=== PATIENT | male | born 1940 | race Caucasian/White ===

== ENCOUNTER 2017-08-02 17:20 | Emergency (ER) | payer MEDICARE, OTHER ==
[~2017-08-02] VITALS: Ht 177.8 cm; Wt 90.7 kg
[~2017-08-02 17:20] MED LIST: AUGMENTIN 500 M1 TAB PO
--- OUTSIDE RECORDS SUMMARY | 2017-08-02 17:57 | External Medical Summary Rpt | CCD ---
Author Author YESSICA Address Unknown Phone [email or web address] Purpose Continuity of Care Document - through 2016
--- OUTSIDE RECORDS SUMMARY | 2017-08-02 17:57 | External Medical Summary Rpt | CCD ---
Author Author [employer] Organization [employer] Address Unknown Phone Unavailable Purpose Continuity of Care Document - through 2016
--- OUTSIDE RECORDS SUMMARY | 2017-08-02 17:57 | External Medical Summary Rpt | CCD ---
Author Author YESSCIA Address Unknown Phone [email or web address] Purpose Continuity of Care Document - through 2016
--- OUTSIDE RECORDS SUMMARY | 2017-08-02 17:58 | External Medical Summary Rpt ---
Author Author YESSICA Hightower, [employer] Organization [employer] Address Unknown Phone Unavailable
--- OUTSIDE RECORDS SUMMARY | 2017-08-02 17:58 | External Medical Summary Rpt | CCD ---
Demographics Preferred Language American Marital Status Unknown Anglican Affiliation Unknown Race Unknown Ethnic Group Unknown Author Author , YESSICA Organization YESSICA Address Unknown Phone Immunization Name Date Rout CVX Reac Dose Comm Prov Is Faci e tion ent ider Refu lity Give sed n Td 03-0 9 999 Hist H149 No H149 (uzma 5-19 ori lt), 97 al Info adso rmat rbed ion - Sour ce Unsp ecif ied
--- OUTSIDE RECORDS SUMMARY | 2017-08-02 17:58 | External Medical Summary Rpt | CCD ---
Demographics Preferred Language Yemeni Marital Status Unknown Sikhism Affiliation Unknown Race Unknown Ethnic Group Unknown Author Author , YESSICA Organization YESSICA Address Unknown Phone [email or web address] Immunization Name Date Rout CVX Reac Dose Comm Prov Is Faci e tion ent ider Refu lity Give sed n Td 03-0 9 999 Hist H149 No H149 (uzma 5-19 ori lt), 97 al Info adso rmat rbed ion - Sour ce Unsp ecif ied
[2017-08-02 18:19] LABS: HEMOGLOBIN 13.2 g/dL (14.1-18.0); LYMPH # 1.3 K/mm3 (0.7-4.5); LYMPH % 8.5 % (10-50)
[2017-08-02 18:40] LABS: BUN 30 mg/dL (7-18); GFR (ESTIMATED) 33 ML/MIN (>60)
--- NOTE | 2017-08-02 18:52 | Emergency Room Report ---
History of Present Illness Time Seen by MD Lester Presenting Problem in Triage Pt arrived:Wheelchair Presenting Problem:GENERAL WEAKNESS SINCE NOON , NAUSEA BUT NO VOMITING , SHARP PAIN IN ABD THAT COMES AND GOES . 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 N Clinical Suspician of Infection? N Mental Status: 1 - Regular (Normal Baseline) Sepsis Risk:Low Sepsis Risk Have you (or family members/close friends) recently traveled outside the [place]? N If Yes, where/when: Have you had exposure to infectious disease within the past month? TB? Other? Specify: Abdominal pain radiating to back, n/v, not feeling well for the past day or so, c/o bloating. Reports hx of pancreatitits leading to choly at [place] in past. Keeping down kimmie rafat. ALLERGIES Coded Allergies: aspirin (Intermediate, 08/02/17) Home Medications Active Scripts Amoxicillin & Pot Clavulanate (Augmentin Tablet) 1 TAB PO TID 7 Days Prov: 02/10/08 History Medical History General Angina: Yes [place]: Yes Hypertension? Yes Hyperlipidemia? Yes CHF? No COPD? No Asthma? No Hernia? No CVA? No Seizures? No Diabetes? No UTI? No Stones? No GB Disease: No Hepatitis? No Cataracts? No Glaucoma? No MRSA? No TB? No Cancer? No Immunization Hx DT/Tetanus 1-4 YRS Flu THIS YR Pneumonia 1-4 YRS Surgical Hx Previous Surgery?Y HEART CATH WITH STENT TONSILECTOMY Family History Family Hx Diabetes No CAD Yes Hypertension Yes Hyperlipidemia No Cancer Yes TB No Social History Smoking Hx Smoker: Never Smoker Tobacco: No Packs/day N/A Alcohol Alcohol: No Review of Systems All Other Systems Reviewed and Negative Gastrointestinal see HPI Physical Exam Vital Signs Vital Signs Date Time Temp Pulse Resp B/P Pulse O2 O2 Flow FiO2 Ox Delivery Rate 08/02 1736 97.5 64 20 101/62 97 General Appearance normal appearance, WD/WN, mild distress Eye Exam - bilateral eye normal exam, bilateral eye PERRL, bilateral eye EOMI Neck normal inspection, non-tender, supple, full range of motion Respiratory Status Yes: trachea midline, chest symmetrical, non tender chest. No: respiratory distress, tender on palpation, use of accessory muscles, pain on inspiration, pain on expiration, productive cough, non productive cough. Lung Sounds bilateral: normal breath sounds, lungs clear. Cardiovascular normal exam, regular rate/rhythm, no peripheral edema, no gallop, no JVD, no murmur, no rub Gastrointestinal normal bowel sounds, soft, distended, no guarding, no rebound Back normal inspection, no CVA tenderness, bowel/bladder continent Extremities non-tender, normal range of motion, normal inspection Strength 5 Upper Ext (L), 5 Upper Ext (R), 5 Lower Ext (L), 5 Lower Ext (R) Neurologic alert, normal exam, no motor/sensory deficits, oriented x 3 Glascow Coma Scale Glascow Coma Scale Response Value EYE response: 4 Spontaneously 4 MOTOR response: 6 OBEYS 6 VERBAL response: 5 Oriented & Converses 5 Total 15 Skin intact, normal color, warm/dry Medical Decision Making LABS/Meds/Orders Pt receiving controlled substance in ED? No Results/Orders Laboratory Tests 08/02/17 1900: Urine Color YELLOW, Urine Appearance CLEAR, Urine pH 5.5, Ur Specific [place] 1.020, Urine Protein 1+ H, Urine Ketones NEGATIVE, Urine Blood 1+ H, Urine Nitrate NEGATIVE, Urine Bilirubin NEGATIVE, Urine Urobilinogen 0.2, Ur Leukocyte Esterase NEGATIVE, Urine RBC NONE, Urine WBC 3-5, Ur Squamous Epith Cells 5-10, Urine Bacteria 1+, Hyaline Casts 10-20, Coarse Granular Casts OCC, Urine Glucose NEGATIVE 08/02/17 1800: Amylase 2851 *H, Lipase 61932 H 08/02/17 1800: Sodium 139, Potassium 4.4, Chloride 102, Carbon Dioxide 28, BUN 30 H, Creatinine 2.0 H, Estimated Creat Clear 40 L, Estimated GFR (MDRD) 33, Glucose 117 H, Calcium 8.9, Total Bilirubin 1.0, AST 23, ALT 24, Alkaline Phosphatase 89, Creatine Kinase 77, CK-MB (CK-2) Rel Index 0.6, CK and CKMB Interp < 0.5, Troponin I < 0.02, Total Protein 7.5, Albumin 3.8, Globulin 3.7 H, Albumin/ Globulin Ratio 1.0 L, WBC 15.0 H, RBC 4.32 L, Hgb 13.2 L, Hct 40.1 L, MCV 92.7, RDW 13.4, Plt Count 195, MPV 8.2, Gran % 84.9 H, Gran # 12.7 H, Total Counted 100, Lymphocytes % 8.5 L, Monocytes % 5.6, Eosinophils % 0.9, Basophils % 0.1, Neutrophils 85 H, Lymphocytes (Manual) 10, Lymphocytes # 1.3, Monocytes (Manual) 2, Monocytes # 0.8, Eosinophils # 0.1, Eosinophils # (Manual) 2, Basophils # 0.0, Basophils # (Manual) 1, Platelet Estimate NORMAL, PUBS MCHC 32.9, MCH 30.5 Current Medication Orders Sig/Zaid Start time Last Medication Dose Route Stop Time Status Admin Ondansetron HCl 0 .STK-MED ONE 08/02 2011 DC .ROUTE Ondansetron HCl 4 MG ONCE ONE 08/02 2000 DC 08/02 IV 08/02 Sodium Chloride 1,000 ML .STK-MED ONE 08/02 1811 DC IV Sodium Chloride 10 ML PRN PRN 08/02 1800 AC IV 08/03 175 Sodium Chloride 1,000 ML .Q1H1M 08/02 1800 DC 08/02 IV 08/02 190 1824 Sodium Chloride 10 ML PRN PRN 08/02 1800 AC IV 08/03 175 Orders Procedure Date/time Status DIET-NOTHING BY MOUTH 08/03 B Active LIPASE 08/02 1806 Complete AMYLASE 08/02 1806 Complete DIFFERENTIAL-WBC 08/[address] ABD & PELVIS W/O CONTRAST 08/02 1755 Active 12 LEAD [facility] ([facility] 08/02 1752 Active ELECTROCARDIOGRAM REQUEST 08/[address] ABD/PELVIS REQ 08/02 1752 Active IV SALINE LOCK 08/02 1752 Active URINALYSIS/COMPLETE 08/02 1752 Complete CBC WITH AUTO DIFF 08/02 1752 Complete CARDIAC ENZYMES 08/02 1752 Complete CHEM 12 PROFILE 08/02 1752 Complete CM/EKG CM/EKG EKG rate, NSR, rhythm, no evid. 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 Condition, Transfer to facility Comments tc from lab: lipase 12,000 range will dilute; amylase Physician Consult 2 Time Called 1944 Reason Pt. Condition, Transfer to facility Comments Still waitiing for call back from [place] regarding possible transfer Physician Consult 3 Consult/PCP Dr. Rob at [place] in [place] accepting; awaiting bed assignmt 2015 Departure Departure Time of Disposition 2017 Disposition DC/[facility]FER from ER [facility] Clinical Impression Primary Impression: Pancreatitis Qualifiers: Chronicity: acute Pancreatitis type: other Acute pancreatitis complication: unspecified Qualified Code: K85.80 - Other acute pancreatitis without necrosis or infection Secondary Impressions: Elevated amylase and lipase Condition STABLE Referrals Ag Soler MD (Family) ED Critical Care Critical Care No at 2018
--- NOTE | 2017-08-02 18:52 | Emergency Room Report ---
History of Present Illness Time Seen by MD Lester Presenting Problem in Triage Pt arrived:Wheelchair Presenting Problem:GENERAL WEAKNESS SINCE NOON , NAUSEA BUT NO VOMITING , SHARP PAIN IN ABD THAT COMES AND GOES . 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 N Clinical Suspician of Infection? N Mental Status: 1 - Regular (Normal Baseline) Sepsis Risk:Low Sepsis Risk Have you (or family members/close friends) recently traveled outside the [place]? N If Yes, where/when: Have you had exposure to infectious disease within the past month? TB? Other? Specify: Abdominal pain radiating to back, n/v, not feeling well for the past day or so, c/o bloating. Reports hx of pancreatitits leading to choly at [place] in past. Keeping down kimmie rafat. ALLERGIES Coded Allergies: aspirin (Intermediate, 08/02/17) Home Medications Active Scripts Amoxicillin & Pot Clavulanate (Augmentin Tablet) 1 TAB PO TID 7 Days Prov: 02/10/08 History Medical History General Angina: Yes [place]: Yes Hypertension? Yes Hyperlipidemia? Yes CHF? No COPD? No Asthma? No Hernia? No CVA? No Seizures? No Diabetes? No UTI? No Stones? No GB Disease: No Hepatitis? No Cataracts? No Glaucoma? No MRSA? No TB? No Cancer? No Immunization Hx DT/Tetanus 1-4 YRS Flu THIS YR Pneumonia 1-4 YRS Surgical Hx Previous Surgery?Y HEART CATH WITH STENT TONSILECTOMY Family History Family Hx Diabetes No CAD Yes Hypertension Yes Hyperlipidemia No Cancer Yes TB No Social History Smoking Hx Smoker: Never Smoker Tobacco: No Packs/day N/A Alcohol Alcohol: No Review of Systems All Other Systems Reviewed and Negative Gastrointestinal see HPI Physical Exam Vital Signs Vital Signs Date Time Temp Pulse Resp B/P Pulse O2 O2 Flow FiO2 Ox Delivery Rate 08/02 1736 97.5 64 20 101/62 97 General Appearance normal appearance, WD/WN, mild distress Eye Exam - bilateral eye normal exam, bilateral eye PERRL, bilateral eye EOMI Neck normal inspection, non-tender, supple, full range of motion Respiratory Status Yes: trachea midline, chest symmetrical, non tender chest. No: respiratory distress, tender on palpation, use of accessory muscles, pain on inspiration, pain on expiration, productive cough, non productive cough. Lung Sounds bilateral: normal breath sounds, lungs clear. Cardiovascular normal exam, regular rate/rhythm, no peripheral edema, no gallop, no JVD, no murmur, no rub Gastrointestinal normal bowel sounds, soft, distended, no guarding, no rebound Back normal inspection, no CVA tenderness, bowel/bladder continent Extremities non-tender, normal range of motion, normal inspection Strength 5 Upper Ext (L), 5 Upper Ext (R), 5 Lower Ext (L), 5 Lower Ext (R) Neurologic alert, normal exam, no motor/sensory deficits, oriented x 3 Glascow Coma Scale Glascow Coma Scale Response Value EYE response: 4 Spontaneously 4 MOTOR response: 6 OBEYS 6 VERBAL response: 5 Oriented & Converses 5 Total 15 Skin intact, normal color, warm/dry Medical Decision Making LABS/Meds/Orders Pt receiving controlled substance in ED? No Results/Orders Laboratory Tests 08/02/17 1900: Urine Color YELLOW, Urine Appearance CLEAR, Urine pH 5.5, Ur Specific [place] 1.020, Urine Protein 1+ H, Urine Ketones NEGATIVE, Urine Blood 1+ H, Urine Nitrate NEGATIVE, Urine Bilirubin NEGATIVE, Urine Urobilinogen 0.2, Ur Leukocyte Esterase NEGATIVE, Urine RBC NONE, Urine WBC 3-5, Ur Squamous Epith Cells 5-10, Urine Bacteria 1+, Hyaline Casts 10-20, Coarse Granular Casts OCC, Urine Glucose NEGATIVE 08/02/17 1800: Amylase 2851 *H, Lipase 88113 H 08/02/17 1800: Sodium 139, Potassium 4.4, Chloride 102, Carbon Dioxide 28, BUN 30 H, Creatinine 2.0 H, Estimated Creat Clear 40 L, Estimated GFR (MDRD) 33, Glucose 117 H, Calcium 8.9, Total Bilirubin 1.0, AST 23, ALT 24, Alkaline Phosphatase 89, Creatine Kinase 77, CK-MB (CK-2) Rel Index 0.6, CK and CKMB Interp < 0.5, Troponin I < 0.02, Total Protein 7.5, Albumin 3.8, Globulin 3.7 H, Albumin/ Globulin Ratio 1.0 L, WBC 15.0 H, RBC 4.32 L, Hgb 13.2 L, Hct 40.1 L, MCV 92.7, RDW 13.4, Plt Count 195, MPV 8.2, Gran % 84.9 H, Gran # 12.7 H, Total Counted 100, Lymphocytes % 8.5 L, Monocytes % 5.6, Eosinophils % 0.9, Basophils % 0.1, Neutrophils 85 H, Lymphocytes (Manual) 10, Lymphocytes # 1.3, Monocytes (Manual) 2, Monocytes # 0.8, Eosinophils # 0.1, Eosinophils # (Manual) 2, Basophils # 0.0, Basophils # (Manual) 1, Platelet Estimate NORMAL, PUBS MCHC 32.9, MCH 30.5 Current Medication Orders Sig/Zaid Start time Last Medication Dose Route Stop Time Status Admin Ondansetron HCl 0 .STK-MED ONE 08/02 2011 DC .ROUTE Ondansetron HCl 4 MG ONCE ONE 08/02 2000 DC 08/02 IV 08/02 Sodium Chloride 1,000 ML .STK-MED ONE 08/02 1811 DC IV Sodium Chloride 10 ML PRN PRN 08/02 1800 AC IV 08/03 175 Sodium Chloride 1,000 ML .Q1H1M 08/02 1800 DC 08/02 IV 08/02 190 1824 Sodium Chloride 10 ML PRN PRN 08/02 1800 AC IV 08/03 175 Orders Procedure Date/time Status DIET-NOTHING BY MOUTH 08/03 B Active LIPASE 08/02 1806 Complete AMYLASE 08/02 1806 Complete DIFFERENTIAL-WBC 08/[address] ABD & PELVIS W/O CONTRAST 08/02 1755 Active 12 [facility] 08/02 1752 Active ELECTROCARDIOGRAM REQUEST 08/[address] ABD/PELVIS REQ 08/02 1752 Active IV SALINE LOCK 08/02 1752 Active URINALYSIS/COMPLETE 08/02 1752 Complete CBC WITH AUTO DIFF 08/02 1752 Complete CARDIAC ENZYMES 08/02 1752 Complete CHEM 12 PROFILE 08/02 1752 Complete CM/EKG CM/EKG EKG rate, NSR, rhythm, no evid. of ischemic chgs, no ectopy, normal QRS, normal [place], normal EKG (old RBBB no chg ) XRAY/CT/US XRAY/CT/US CT abdomen, pelvis CT interpretation by reviewed by me ([facility] report reviewed) Time results known: 1855 CT Results abnormal, mild pancreatitis, mild perinephric stranding, bilateral , nonspecific, no stones;nl appendix Consult Physician Consult 1 Time Called 1906 Reason Pt. Condition, Transfer to facility Comments tc from lab: lipase 12,000 range will dilute; amylase Physician Consult 2 Time Called 1944 Reason Pt. Condition, Transfer to facility Comments Still waitiing for call back from [place] regarding possible transfer Physician Consult 3 Consult/PCP Dr. Rob at [place] in [place] accepting; awaiting bed assignmt 2015 Departure Departure Time of Disposition 2017 Disposition DC/[facility]FER from ER to [facility] Clinical Impression Primary Impression: Pancreatitis Qualifiers: Chronicity: acute Pancreatitis type: other Acute pancreatitis complication: unspecified Qualified Code: K85.80 - Other acute pancreatitis without necrosis or infection Secondary Impressions: Elevated amylase and lipase Condition STABLE Referrals Ag Soler MD (Family) ED Critical Care Critical Care No at 2018
[2017-08-02 19:08] LABS: NEUTROPHILS 85 % (42-76)
[2017-08-02 19:10] LABS: URINE BILIRUBIN - DIPSTICK NEGATIVE (NEG); URINE BLOOD 1+ (NEG)
[2017-08-02 21:03] VITALS: BP 119/50
--- NOTE | 2017-08-03 07:02 | RADIOLOGY REPORT PS360 ---
CT ABD PELVIS W/O CONTRAST CLINICAL INDICATION: Localized upper abdominal pain ABD PAIN ORDERING PHYSICIAN: Shelley Pearson MD PATIENT AGE: 76 years COMPARISON: None TECHNIQUE: Axial images obtained with sagittal and coronal reformats. PROCEDURE: Oral Contrast: None IV Contrast: None . FINDINGS: Lower thorax: Coronary artery calcifications. Mild dependent atelectatic changes. ABDOMEN: Liver: No masses or biliary dilatation. Gallbladder: Cholecystectomy. No ductal dilatation. Pancreas: There is mild peripancreatic inflammatory stranding consistent with nonacute pancreatitis. No pancreatic gas. Spleen: Unremarkable. Adrenals: Unremarkable Kidneys/ureters: No masses. No renal calculi. No hydronephrosis. No perinephric fluid collections. No ureteral dilatation or obvious ureteral calculi. Minimal nonspecific stranding of the perinephric renal fat Stomach bowel: Nondistended. No obvious mass or thickening. Appendix: No evidence of appendicitis. PELVIS: Reproductive: Unremarkable Bladder: Nondistended. No obvious stones or masses. ABDOMEN & PELVIS: Peritoneum: No free air Lymph nodes: No enlarged lymph nodes apparent. Vasculature: No evidence of abdominal aortic aneurysm. No retroperitoneal hemorrhage evident. Bones: No acute fracture IMPRESSION: Mild acute pancreatitis
== END 2017-08-02 21:04 | disposition short-term general hospital (02) ==
LOC: ER 17:20
PROVIDERS: Emergency Medicine
DX: K85.80 Other acute pancreatitis without necrosis or infection (principal); I10 Essential (primary) hypertension; I20.8 Other forms of angina pectoris; E78.5 Hyperlipidemia, unspecified
CPT/HCPCS: J2405